=== PATIENT | male | born 1960 | race Caucasian/White ===

== ENCOUNTER 2020-04-28 14:30 | Emergency (ER) | payer OTHER, SELFPAY ==
[2020-04-28 15:02] VITALS: BP 148/98; PULSE 102; RESP 19; TEMP 37.1; O2SAT 98; BMI 22.4
--- NOTE | 2020-04-28 15:40 | HMH.EDUTC ---
[facility] [place] Disposition Clinical Impression: Upset stomach Disposition: Home, Self-Care Condition on Discharge: Good Instructions: Preventing the Spread of Coronavirus Discharge Instructions, DI for Nausea -- Adult, Nausea and Vomiting-Adult, Fatigue (Alternative Therapy), DI for Fatigue Additional Instructions: Go home and self quarantine while waiting results of your COVID19 test, do not be out in public and no work until test results back and negative Make sure to follow up with Family Doctor if no improvement or any worsening of symptoms in the next 48-72 hours Return if needed Straight to ER if any life threatening symptoms You was given handout on COVID19 quarantine instructions, call back to [facility] on Thursday to see if your results are back and test results Prescriptions: Ondansetron [Zofran 4mg ODT] 4 mg PO Q8HP PRN #9 tab.rapdis PRN Reason: Nausea Transmission Status: Pending to [facility] Referrals: Edwar Haas MD [Primary Care Provider] - As needed Forms: Work/School Release Time of Disposition: 16:11 Medical Decision Making - Juventino Inquiry Pt receiving controlled substance: No Juventino was queried for this patient: No Vital Signs: 04/28/20 15:02 Temperature 98.8 F Temperature Source Oral Pulse Rate [Right Brachial] 102 H Respiratory Rate 19 Blood Pressure [Right Arm] 148/98 H Blood Pressure Mean [Right Arm] 114 Blood Pressure Source [Right Arm] Automatic Cuff Blood Pressure Position [Right Arm] Sitting 02 Sat by Pulse Oximetry 98 Oxygen Delivery Method Room Air Orders (Tests/Meds): ED MEDICATIONS Discontinued Medications Generic Name Dose Route Start Last Admin Trade Name Freq PRN Reason Stop Dose Admin Ondansetron HCl 4 mg 04/28/20 15:42 04/28/20 15:43 Zofran 4mg Odt SL 04/28/20 15:43 4 mg ONCE ONE Administration ORDERS Category Date Time Status SARS-CoV-2, [place] ([place]) Stat Lab 04/28/20 15:50 Received - Reevaluation(s) Time: 16:06 Reevaluation #1: Discussed with patient and recommended transfer to ED for further work up and evaluation and patient declined State that after he took Zofran upset stomach is feeling better and refused transfer to ED States that he will make appointment with PCP and follow up with him if symptoms continue or do not improve [facility] [place] HPI - General Stated complaint: Stomach problems Time Seen by Provider: 04/28/20 15:40 Mode of Arrival: Ambulatory Source of Information: Patient Limitations: No Limitations Description of Symptoms (Recalled from Triage Doc. by RN): PATIENT C/O FATIGUE, DECREASED ENERGY, DECREASED APPETITE, NAUSEA AND BELCHING X 3 DAYS HEENT Symptoms (Recalled from RN notes): No Resp Symptoms (Recalled from RN notes): No Skin Symptoms (Recalled from RN notes): No MS Symptoms (Recalled from RN notes): No Functional Status (Recalled from RN notes): WNL - History of Present Illness Provider Complaint: Patient states that he hasnt been feeling well for last 3 days States that he has been having nausea, vomiting x 2, feeling tired and upset stomach for last few days States that he noticed that nothing tastes right when he eats and drinks, Denies blood in stools, denies abdominal pain denies CP. Denies heart burn. States that he works at [employer] and not sure if he has been exposed to COVID19 - Related Data Previous Rx's Medication Instructions Recorded Ondansetron [Zofran 4mg ODT] 4 mg PO Q8HP PRN #9 tab.rapdis 04/28/20 Allergies Allergy/AdvReac Type Severity Reaction Status Date / Time No Known Allergies Allergy Verified 04/28/20 15:15 - Worker's Comp Is this a Worker's Comp case?: No [facility] History - Hepatitis A Screen Drug use history?: No High risk sexual behaviors?: No History of sexually transmitted infection?: No Currently employed?: No Childcare worker?: No Do you have indoor plumbing?: Yes Do you have electricity?: Yes Attestation statement:: This patient has been screened for
[2020-04-28 16:10] VITALS: BP 148/98; PULSE 102; RESP 19; TEMP 37.1; O2SAT 98
[2020-05-01 09:41] LABS: Covid-19 Nasal PCR Sendout UK NOT DETECTED
== END 2020-04-28 16:15 | disposition home or self-care (01) ==
PROVIDERS: Emergency Provider Nurse Practitioner; PCP Emergency Medicine
DX: K30 Functional dyspepsia (principal); R03.0 Elevated blood-pressure reading, without diagnosis of hypertension; F17.210 Nicotine dependence, cigarettes, uncomplicated
CPT/HCPCS: 99201; U0003

== ENCOUNTER 2020-09-04 13:29 | Emergency (ER) | payer OTHER, SELFPAY ==
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
[2020-09-04 13:45] VITALS: BP 170/112; PULSE 89; RESP 18; O2SAT 98; BMI 20.9
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
--- NOTE | 2020-09-04 14:07 | PC.NURSE ---
Pt returned from rad.
[2020-09-04 14:31] VITALS: BP 148/96; PULSE 88; RESP 17; TEMP 36.6; O2SAT 99
== END 2020-09-04 14:35 | disposition home or self-care (01) ==
PROVIDERS: Emergency Provider Emergency Medicine; PCP Emergency Medicine
DX: S13.4XXA Sprain of ligaments of cervical spine, initial encounter (principal); S76.012A Strain of muscle, fascia and tendon of left hip, initial encounter; S83.402A Sprain of unspecified collateral ligament of left knee, initial encounter; V43.52XA Car driver injured in collision with other type car in traffic accident, initial encounter
CPT/HCPCS: 73502; 73552; 73562; 99282

== ENCOUNTER → 2020-09-12 09:05 | Outpatient (CLI) | payer OTHER, SELFPAY ==
--- NOTE | 2020-09-12 09:08 | XR_ITS ---
PROCEDURE: XR LUMBAR SPINE MIN 4V CLINICAL INDICATION: back pain COMPARISON: No exams were available for comparison FINDINGS: There is normal alignment. No fracture or dislocation is evident. Endplate hypertrophic changes are present with spurring from L1-L5. There is mild multilevel degenerative disc disease from L1-S1. No lytic or blastic change. Mild facet arthritic changes are present at the lumbosacral junction Other findings:None. IMPRESSION: Multilevel lumbar spondylosis as described above Dictated by: Cale Lopez MD 09/12/2020 16:12 Cale Lopez MD in [place] 09/12/2020 16:12
== END ==
PROVIDERS: PCP Emergency Medicine; Visit Provider Emergency Medicine
DX: M54.5 Low back pain (principal)
CPT/HCPCS: 72110

== ENCOUNTER → 2020-10-05 07:36 | Outpatient (CLI) | payer OTHER, SELFPAY ==
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
== END ==
PROVIDERS: PCP Emergency Medicine; Visit Provider Emergency Medicine
DX: M54.5 Low back pain (principal)
CPT/HCPCS: 72148; 76376

== ENCOUNTER 2020-10-22 13:00 | Outpatient (RCR) | payer OTHER, SELFPAY ==
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
== END 2020-10-22 13:05 | disposition home or self-care (01) ==
LOC: PT 13:00
PROVIDERS: Visit Provider Emergency Medicine
DX: M25.552 Pain in left hip; M54.5 Low back pain
CPT/HCPCS: 97010; 97014; 97033; 97035; 97110; 97140; 97163; G0283

== ENCOUNTER → 2020-11-05 08:42 | Outpatient (POV) | payer OTHER, SELFPAY ==
[2020-11-05 09:07] VITALS: BP 138/80; PULSE 80; RESP 18; TEMP 36.8; O2SAT 98; BMI 23.7
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
== END ==
PROVIDERS: PCP Emergency Medicine; Visit Provider Clinical Nurse Specialist Family Health
DX: M46.1 Sacroiliitis, not elsewhere classified (principal)
CPT/HCPCS: 99202; G0463

== ENCOUNTER 2020-12-03 13:00 | Day surgery (SDC) | payer OTHER, SELFPAY ==
[2020-12-03 13:13] VITALS: BP 132/91; PULSE 84; RESP 18; TEMP 36.7; O2SAT 98; BMI 23.4
[2020-12-03 13:34] VITALS: BP 168/85; PULSE 81; RESP 18; TEMP 36.8; O2SAT 99
[2020-12-03 13:35] VITALS: BP 158/85; PULSE 88; RESP 18; O2SAT 99
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
[2020-12-03 13:45] VITALS: BP 137/90; PULSE 77; RESP 18; O2SAT 98
== END 2020-12-03 13:46 | disposition home or self-care (01) ==
LOC: SC.PAINP 13:01
PROVIDERS: PCP Emergency Medicine; Visit Provider Clinical Nurse Specialist Family Health
DX: M46.1 Sacroiliitis, not elsewhere classified (principal); K21.9 Gastro-esophageal reflux disease without esophagitis; Z79.899 Other long term (current) drug therapy
CPT/HCPCS: 27096; G0260; J1040; Q9966

== ENCOUNTER → 2020-12-24 12:45 | Outpatient (POV) | payer OTHER, SELFPAY ==
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
[2020-12-24 13:13] VITALS: BP 178/99; PULSE 82; RESP 20; TEMP 36.9; O2SAT 96; BMI 23.4
== END ==
PROVIDERS: PCP Emergency Medicine; Visit Provider Clinical Nurse Specialist Family Health
DX: M46.1 Sacroiliitis, not elsewhere classified (principal)
CPT/HCPCS: 99212; G0463

== ENCOUNTER 2021-01-11 08:51 | Day surgery (SDC) | payer BC, SELFPAY ==
[2021-01-11 09:31] VITALS: BP 148/85; PULSE 71; RESP 18; TEMP 36.4; O2SAT 98; BMI 23.4
[2021-01-11 10:11] VITALS: BP 136/78; PULSE 65; RESP 18; O2SAT 98
[2021-01-11 10:12] VITALS: BP 140/77; PULSE 66; RESP 18; O2SAT 99
[2021-01-11 10:24] VITALS: BP 168/87; PULSE 74; RESP 18; O2SAT 98
--- NOTE | 2021-01-11 11:33 | P.PCN_ITS ---
- Procedure Date: 01/11/21 Time: 11:34 Anesthesiologist:: Matthew Estrada MD Complications:: None Pre-procedure Diagnosis:: Sacroiliitis Post-procedure Diagnosis:: Same Indications for Procedure:: The patient is a pleasant 60-year-old white male who we are treating for left- sided hip pain. He is tender over his left SI joint. He is positive SI joint compression test on left side. Is positive Terry test on left side. Is positive Nickolas's test on the left side. Patient did get some relief after his last left SI joint injection however this was temporary. He presents for repeat left SI joint injection under fluoroscopy today. Procedure Details:: Left SI joint injection under fluoroscopy Informed consent was obtained and the risks and benefits of the procedure was explained to the patient. Patient was taken to the procedure room. Patient was placed prone on the procedure table. The left hip was prepped using ChloraPrep. The skin and subcutaneous tissues were anesthetized using lidocaine. I placed a 22-gauge spinal needle into the inferior aspect of the left SI joint. Needle placement was confirmed with dye. After this we injected 5 mL bupivacaine 0.25% and Depo-Medrol 40 mg into the left SI joint. The patient tolerated the procedure well with no complication. Plan and Disposition:: We will follow-up with him in 2 weeks. Will reevaluate symptoms at that time. He may be a candidate for a left SI joint stabilization if he does not get long- term relief with these injections.
== END 2021-01-11 10:25 | disposition home or self-care (01) ==
LOC: SC.PAINP 08:52
PROVIDERS: PCP Emergency Medicine; Visit Provider Anesthesiology
DX: M46.1 Sacroiliitis, not elsewhere classified (principal); Z72.0 Tobacco use; Z79.899 Other long term (current) drug therapy
CPT/HCPCS: 27096; G0260; J1040; Q9966

== ENCOUNTER → 2021-02-04 09:40 | Outpatient (POV) | payer BC, SELFPAY ==
[2021-02-04 09:52] VITALS: BP 165/89; PULSE 89; RESP 18; O2SAT 98; BMI 23.7
--- NOTE | 2021-02-04 09:55 | HMH.PAINSOAP ---
[facility] Pain Management SOAP Note Subjective:: Patient is a pleasant 60-year-old white male who we are treating for left-sided hip pain. Patient is following up after his second SI joint injection. Patient had extremely good relief over 80%. He rates his pain today 1 out of 10. He is much more functional. Patient would like to consider a corner lock procedure/SI joint stabilization. Patient is going to call our office if his pain begins to return or if he like to proceed with an SI joint stabilization. ROS General: no recent weight change, no fever, no sleep disturbances Respiratory: no cough, no shortness of air, no recurring pulmonary infections Cardiovascular/Peripheral Vascular: No chest pain, No palpitations, no edema, no shortness of breath. Gastrointestinal: no new onset incontinence, normal bowel movements reported Genitourinary: no new onset incontinence Musculoskeletal: SI joint pain Psychiatric: normal mood/ affect Neurological: [denies new onset weakness in extremities], [denies new onset balance issues] Objective:: Physical Exam General: Alert and oriented x3, no acute distress, pleasant and cooperative, [on room air] Lungs: Resps E/U, Symmetrical chest expansion, Eyes: PERRL Musculoskeletal: Flexion and extension of lumbar spine somewhat guarded secondary to pain, deep tendon reflexes normal, strength in upper and lower extremities [5/5], slightly antalgic gait noted Neurological: speech clear, workforce management manager equal, no gross sensory deficits Assessment:: Sacroiliitis Plan:: Patient is going to call our office if his pain begins to return or if he has any wish to move forward with his SI joint stabilization. Dr. Estrada has reviewed this note and agrees with this plan of care. This note was dictated using voice recognition software and may contain errors or omissions [facility] History I have reviewed the patient's past medical history: Yes Medical History: Denies:: Cancer, Diabetes Mellitus Type 1, Diabetes Mellitus Type 2, MRSA, Seizures *Have you ever received a pneumonia vaccine?: No *Have you received a flu vaccine this season?: No Other Medical History: Reports: Anemia. Denies: Blood Transfusion Reaction Laterality Cases: Left: Arthroscopy Knee, Bilateral: Tonsillectomy Other Surgeries: Yes: Colonoscopy Amputation: No Fractures: No - *Social History Smoking Status: Current every day smoker Tobacco Type: cigarettes # Packs/Day (cigarettes): 1 Alcohol Intake: never Substance Use Type: denies use *Occupational Status:: other Housing: house Household Members: other *Travel in the last 8 weeks: None Family Hx:: Unable to obtain
== END ==
PROVIDERS: PCP Emergency Medicine; Visit Provider Clinical Nurse Specialist Family Health
DX: M46.1 Sacroiliitis, not elsewhere classified (principal)
CPT/HCPCS: 99212; G0463

== ENCOUNTER 2025-07-10 09:20 | Emergency (ER) | payer BC, SELFPAY ==
[2025-07-10 09:27] VITALS: BP 173/86; PULSE 77; RESP 16; TEMP 36.6; O2SAT 97; BMI 23.7
[2025-07-10 09:30] VITALS: BP 186/104; PULSE 88; O2SAT 98
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
[2025-07-10 09:37] VITALS: BP 158/94; PULSE 70; O2SAT 98
[2025-07-10] MEDS: ACETAMINOPHEN 500MG TAB 1000 MG PO (09:41)
[2025-07-10] MEDS: IBUPROFEN 600 MG TABLET PO (09:41)
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
[2025-07-10 10:31] VITALS: BP 144/64; PULSE 56; O2SAT 100
[2025-07-10 11:01] VITALS: BP 135/62; PULSE 54; O2SAT 99
--- NOTE | 2025-07-10 11:16 | PC.NURSE ---
IMAGES POWERSHARED WITH [facility]
--- NOTE | 2025-07-10 11:17 | PC.NURSE ---
PT PLACED IN C-COLLAR
--- NOTE | 2025-07-10 11:18 | PC.NURSE ---
c collar placed on pt
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
--- NOTE | 2025-07-10 12:15 | PC.NURSE ---
called back and is speaking with Dr Rizo
[2025-07-10 12:31] VITALS: BP 135/62; PULSE 54; RESP 16; TEMP 36.7; O2SAT 98
== END 2025-07-10 12:33 | disposition home or self-care (01) ==
PROVIDERS: Emergency Provider Student in an Organized Health Care Education/Training Program; PCP Family Medicine
DX: S12.100A Unspecified displaced fracture of second cervical vertebra, initial encounter for closed fracture (principal); M54.2 Cervicalgia; R10.2 Pelvic and perineal pain; F17.210 Nicotine dependence, cigarettes, uncomplicated; V49.40XA Driver injured in collision with unspecified motor vehicles in traffic accident, initial encounter
CPT/HCPCS: 72125; 72170; 99283; 99284

== ENCOUNTER 2025-08-17 08:02 | Outpatient (CLI) | payer OTHER, SELFPAY ==
--- OUTSIDE RECORDS SUMMARY | 2025-08-17 08:07 | XMS_ITS | Encounter Summary ---
Author Organization Healthcare Address [address] [place] [address] Care Team Providers Care Staff Toxicologist Name Role Phone Unavailable Primary Care Provider Unavailabl e Encounter Details Date Type Department Care Team (Late st Contact Info) Description 07/10/2025 Orders Only External Location [address] [place] [address] Provider, External Social History Tobacco Use Types Packs/Day Years Used Date Smoking Tobacco: Never Assessed Sex and Gender Information Value Date Recorded Sex Assigned at Not on file Legal Sex Male 11:19 AM EDT Gender Identity Not on file Sexual Orientation Not on file documented as of this encounter Plan of Treatment Upcoming Encounters Date Type Department Care Team (Late st Contact Info) Description 08/24/2025 11:20 AM EDT Consult [place] [facility] [address] [place] [address] Leanna Sanchez, METALLURGICAL SPECIALIST, DNP [address] [place] [address] documented as of this encounter Procedures Procedure Name Priority Date/Time Associated Diagnosis Comments CT OUTSIDE IMAGES 07/10/2025 10:01 AM EDT documented in this encounter Results * CT OUTSIDE IMAGES (07/10/2025 10:01 AM EDT) Anatomical Region Laterality Modality Computed Tomogra phy 07/10/2025 10:0 1 AM EDT us External Provider IMG CT PROCEDURES Edited Resul t - Final documented in this encounter Visit Diagnoses Not on filedocumented in this encounter
--- OUTSIDE RECORDS SUMMARY | 2025-08-17 08:07 | XMS_ITS | Clinical Summary ---
Author Organization Healthcare Address [address] [place] [address] Care Team Providers Care Senior Core Java Developer Name Role Phone Unavailable Primary Care Provider Unavailabl e Encounters Date Type Department Care Team Description 07/10/2025 Orders Only External Location [address] [place] [id number] Provider, External 07/10/2025 Orders Only External Location [address] [place] [address] Provider, External from Last 3 Months Social History Tobacco Use Types Packs/Day Years Used Date Smoking Tobacco: Never Assessed Sex and Gender Information Value Date Recorded Sex Assigned at Not on file Legal Sex Male 11:19 AM EDT Gender Identity Not on file Sexual Orientation Not on file Last Filed Vital Signs Vital Sign Reading Time Taken Comments Blood Pressure 144/64 07/10/2025 11:25 AM EDT Pulse - - Temperature 36.6 C (97.9 F) 07/10/2025 11:25 AM EDT Respiratory Rate 16 07/10/2025 11:25 AM EDT Oxygen Saturation 100% 07/10/2025 11:25 AM EDT RA Inhaled Oxygen Concentration - - Weight - - Height - - Body Mass Index - - Plan of Treatment Upcoming Encounters Date Type Department Care Team (Late st Contact Info) Description 08/24/2025 11:20 AM EDT Consult [place] [facility] [address] [place] [address] Leanna Sanchez, JILL, DNP [address] [place] [address] Health Maintenance Due Date Last Done Comments [facility]-Depression Screening 1961 [facility]-HIV Screening 1961 [facility]-Hepatitis C Screening 1961 [facility]-/Child/Adol SDOH Screenings 1961 [facility]- SDOH Screenings 1979 [facility]-Adult SDOH Screenings 1979 [facility]-DTaP,Tdap,and Td Vaccine s (1 - Tdap) 1980 CT Colonography 2006 Colonoscopy 2006 FIT-DNA 2006 FIT 2006 FOBT 2006 Sigmoidoscopy 2006 [facility]-Colorectal Cancer Screening 2006 [facility]-Pneumococcal Vaccine: 50 + Years (1 of 1 - PCV) 2011 [facility]-Zoster Vaccines (1 of 2) 2011 [id number] Vaccine (1 - 20 24-25 season) 2025 [facility]-Influenza Vaccine (#1) 2025 [facility]-RSV Vaccine: 60+ Years o r (1 - 1-dose 75+ series) 2036 HPV Vaccines Aged Out No longer eligi ble based on patient's age to complete this topic [facility]-HIB Vaccines Aged Out No longer e ligible based on patient's age to complete this topic [facility]-Hepatitis A Vaccines Aged Out No longer eligible based on patient's age to complete this topic [facility]-IPV Vaccines Aged Out No longer e ligible based on patient's age to complete this topic [facility]-Rotavirus Vaccines Aged Out No lo nger eligible based on patient's age to complete this topic Procedures Procedure Name Priority Date/Time Associated Diagnosis Comments CT OUTSIDE IMAGES 07/10/2025 10:01 AM EDT XR OUTSIDE IMAGES 07/10/2025 10:01 AM EDT from Last 3 Months Results * CT OUTSIDE IMAGES (07/10/2025 10:01 AM EDT) Anatomical Region Laterality Modality Computed Tomogra phy 07/10/2025 10:0 1 AM EDT us External Provider IMG CT PROCEDURES Edited Resul t - Final * XR OUTSIDE IMAGES (07/10/2025 10:01 AM EDT) Anatomical Region Laterality Modality Radiographic Sarah ging 07/10/2025 10:0 1 AM EDT us External Provider IMG XR PROCEDURES Edited Resul t - Final from Last 3 Months
--- OUTSIDE RECORDS SUMMARY | 2025-08-17 08:07 | XMS_ITS | Encounter Summary ---
Author Organization Healthcare Address [address] [place] [address] Care Team Providers Care Quality Control Name Role Phone Unavailable Primary Care Provider Unavailabl e Encounter Details Date Type Department Care Team (Late st Contact Info) Description 07/10/2025 Orders Only External Location [address] [place] [address] Provider, External Social History Tobacco Use Types [...] Consult [place] [facility] [address] [place] [address] Leanna Sanchez, STATION MANAGER, DNP [address] [place] [address] documented as of this encounter Procedures Procedure Name Priority Date/Time Associated Diagnosis Comments XR OUTSIDE IMAGES 07/10/2025 10:01 AM EDT documented in this encounter Results * XR OUTSIDE IMAGES (07/10/2025 10:01 AM EDT) Anatomical Region Laterality Modality Radiographic Sarah ging 07/10/2025 10:0 1 AM EDT us External Provider IMG XR PROCEDURES Edited Resul t - Final documented in this encounter Visit Diagnoses Not on filedocumented in this encounter
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
== END 2025-08-17 23:59 | disposition home or self-care (01) ==
LOC: RAD 08:02
PROVIDERS: PCP Internal Medicine; Visit Provider Internal Medicine
DX: S12.100A Unspecified displaced fracture of second cervical vertebra, initial encounter for closed fracture (principal); M50.31 Other cervical disc degeneration, high cervical region; M50.321 Other cervical disc degeneration at C4-C5 level; M50.322 Other cervical disc degeneration at C5-C6 level; S13.4XXA Sprain of ligaments of cervical spine, initial encounter; S32.029A Unspecified fracture of second lumbar vertebra, initial encounter for closed fracture; R90.89 Other abnormal findings on diagnostic imaging of central nervous system
CPT/HCPCS: 72141